=== PATIENT | male | born 1960 | race Caucasian/White ===

== ENCOUNTER 2022-03-22 21:21 | Observation (INO) ==
[2022-03-23] MEDS ORDERED: Lidocaine Jelly 11 ml Syringe TP ONE
[2022-03-23 01:04] LABS: Basophils % 0.3 %; Immature Granulocytes % 0.3 % (0-4)
[2022-03-23 01:06] LABS: Eosinophils # 0.1 K/mcL (0.0-0.6); Eosinophils % 3.1 %; Hematocrit 29.2 % (37.5-50.1); Hemoglobin 10.4 g/dL (12.9-16.9); Immature Platelets 6.4 % (1.1-6.1); Lymphocytes % 29.4 %; Mean Corpuscular HGB Conc 35.6 g/dL (31.6-35.5); Mean Corpuscular Hemoglobin 32.5 pg (28.0-33.3); Mean Corpuscular Volume 91.3 fL (83.0-100.0); Mean Platelet Volume 10.2 fL (9.4-12.4); Monocytes # 0.3 K/mcL (0.0-1.3); Monocytes % 9.3 %; Red Cell Distribution Width 12.5 % (11.5-14.5); Segmented Neutrophils % 57.6 %; White Blood Count 3.5 K/mcL (4.3-11.1)
[2022-03-23 01:21] LABS: BUN/Creatinine Ratio 8 (6-26); Blood Urea Nitrogen 6 mg/dL (8-23); Calcium 8.6 mg/dL (8.6-10.3); Carbon Dioxide 20 mEq/L (23-29); Chloride 87 mEq/L (98-107); Glucose 98 mg/dL (70-105); Osmolality,Calculated 250 (280-300); Sodium 121 mEq/L (136-145); eGFR For African Americans > 60 (> 60); eGFR For Non-African Americans > 60 (> 60)
[2022-03-23 01:32] LABS: Platelet Clumps Few (Not Present); Platelet Count 73 K/mcL (140-400); Platelet Estimate Slight Decrease (Normal)
[2022-03-23 01:43] LABS: Bacteria,Urine Moderate per hpf (None-Few); Bilirubin,Urine Negative (Negative); Blood,Urine Negative (Negative); Clarity,Urine Clear (Clear); Color,Urine Light-Yellow (Yellow); Glucose,Urine (UA) Normal (Normal); Ketones,Urine Negative (Negative); Leukocyte Esterase,Urine Large (Negative); Mucus,Urine Few per lpf (None-Few); Nitrite,Urine Negative (Negative); Protein,Urine Negative (Neg-Trace); RBC,Urine 0-3 per hpf (0-3); Specific Gravity,Urine 1.005 (1.010-1.025); Squamous Epithelial Cell,Urine Few per hpf (None-Few); Urobilinogen,Urine Normal (Normal)
[2022-03-23] MEDS ORDERED: Acetaminophen 325 MG TABLET PO PRN (03:50)
[2022-03-23] MEDS ORDERED: Naloxone 0.4 MG/ML INJ IVP PRN (03:50)
[2022-03-23] MEDS ORDERED: Ondansetron 4 MG/2 ML VIAL IVP PRN (03:50)
[2022-03-23] MEDS ORDERED: Melatonin 3 MG TABLET PO PRN (03:50)
[2022-03-23 05:46] LABS: Immature Granulocytes % 0.3 % (0-4)
[2022-03-23 05:48] LABS: Basophils % 0.7 %; Eosinophils # 0.1 K/mcL (0.0-0.6); Hematocrit 28.5 % (37.5-50.1); Immature Platelets 5.2 % (1.1-6.1); Lymphocytes # 0.9 K/mcL (0.6-4.6); Lymphocytes % 30.1 %; Mean Corpuscular HGB Conc 35.1 g/dL (31.6-35.5); Mean Corpuscular Hemoglobin 31.6 pg (28.0-33.3); Mean Corpuscular Volume 90.2 fL (83.0-100.0); Mean Platelet Volume 10.6 fL (9.4-12.4); Monocytes # 0.4 K/mcL (0.0-1.3); Monocytes % 11.6 %; Neutrophils # 1.6 K/mcL (1.6-8.9); Red Blood Count 3.16 M/mcL (4.19-5.50); Red Cell Distribution Width 12.2 % (11.5-14.5); Segmented Neutrophils % 53.3 %
[2022-03-23 05:51] LABS: Platelet Count 75 K/mcL (140-400)
[2022-03-23 06:02] LABS: Alanine Aminotransferase 15 Units/L (7-52); Albumin 3.3 g/dL (3.5-5.7); Albumin/Globulin Ratio 1.2 (1.1-2.2); Alkaline Phosphatase 125 Units/L (34-104); Aspartate Amino Transferase 17 Units/L (13-39); BUN/Creatinine Ratio 10 (6-26); Bilirubin,Total 0.8 mg/dL (0.3-1.0); Blood Urea Nitrogen 7 mg/dL (8-23); Calcium 8.6 mg/dL (8.6-10.3); Carbon Dioxide 25 mEq/L (23-29); Chloride 89 mEq/L (98-107); Globulin 2.7 g/dL (2.4-3.5); Glucose 100 mg/dL (70-105); Magnesium 1.3 mg/dL (1.6-2.6); Osmolality,Calculated 254 (280-300); Potassium 4.1 mEq/L (3.5-5.1); Sodium 123 mEq/L (136-145); eGFR For African Americans > 60 (> 60); eGFR For Non-African Americans > 60 (> 60)
[2022-03-23] MEDS: 0.9 % Sodium Chloride 1,000 ML IVC SCH ×2 (07:48→17:57)
[2022-03-23 09:37] LABS: BUN/Creatinine Ratio 10 (6-26); Blood Urea Nitrogen 7 mg/dL (8-23); Calcium 8.3 mg/dL (8.6-10.3); Carbon Dioxide 27 mEq/L (23-29); Chloride 91 mEq/L (98-107); Glucose 107 mg/dL (70-105); Osmolality,Calculated 260 (280-300); Potassium 4.2 mEq/L (3.5-5.1); Sodium 126 mEq/L (136-145); eGFR For African Americans > 60 (> 60); eGFR For Non-African Americans > 60 (> 60)
[2022-03-23] MEDS ORDERED: Linezolid 600 MG TABLET PO SCH (11:15)
[2022-03-24] MEDS: 0.9 % Sodium Chloride 1,000 ML IVC SCH ×3 (03:47→23:15)
[2022-03-24] MEDS: Aspirin Enteric Coated 81 MG Tablet PO SCH (08:49)
[2022-03-24] MEDS ORDERED: aMILoride 5 MG TABLET PO SCH (09:00)
[2022-03-24 11:37] LABS: Basophils % 0.3 %; Immature Granulocytes % 0.3 % (0-4)
[2022-03-24 11:38] LABS: Eosinophils # 0.1 K/mcL (0.0-0.6); Eosinophils % 2.4 %; Hematocrit 26.3 % (37.5-50.1); Hemoglobin 9.2 g/dL (12.9-16.9); Lymphocytes # 0.6 K/mcL (0.6-4.6); Mean Corpuscular Hemoglobin 32.2 pg (28.0-33.3); Mean Platelet Volume 10.7 fL (9.4-12.4); Monocytes % 14.9 %; Neutrophils # 1.9 K/mcL (1.6-8.9); Red Blood Count 2.86 M/mcL (4.19-5.50); Red Cell Distribution Width 12.5 % (11.5-14.5); Segmented Neutrophils % 63.1 %
[2022-03-24 11:44] LABS: Monocytes # 0.5 K/mcL (0.0-1.3); Platelet Count 55 K/mcL (140-400)
[2022-03-24 12:03] LABS: Alanine Aminotransferase 13 Units/L (7-52); Albumin 3.1 g/dL (3.5-5.7); Albumin/Globulin Ratio 1.4 (1.1-2.2); Alkaline Phosphatase 107 Units/L (34-104); Aspartate Amino Transferase 16 Units/L (13-39); BUN/Creatinine Ratio 10 (6-26); Bilirubin,Total 0.8 mg/dL (0.3-1.0); Blood Urea Nitrogen 7 mg/dL (8-23); Carbon Dioxide 25 mEq/L (23-29); Chloride 96 mEq/L (98-107); Globulin 2.2 g/dL (2.4-3.5); Glucose 109 mg/dL (70-105); Osmolality,Calculated 265 (280-300); Sodium 128 mEq/L (136-145); Total Protein 5.3 g/dL (6.4-8.9); eGFR For African Americans > 60 (> 60); eGFR For Non-African Americans > 60 (> 60)
[2022-03-25 06:19] LABS: BUN/Creatinine Ratio 8 (6-26); Blood Urea Nitrogen 5 mg/dL (8-23); Calcium 7.9 mg/dL (8.6-10.3); Carbon Dioxide 25 mEq/L (23-29); Chloride 101 mEq/L (98-107); Glucose 102 mg/dL (70-105); Osmolality,Calculated 273 (280-300); Potassium 4.2 mEq/L (3.5-5.1); Sodium 133 mEq/L (136-145); eGFR For African Americans > 60 (> 60); eGFR For Non-African Americans > 60 (> 60)
[2022-03-25 06:49] VITALS: TEMP 98.2
[2022-03-25] MEDS ORDERED: Metoprolol XL (24 HR) Succ 25 MG TAB.ER.24H PO SCH (09:45)
[2022-03-25 10:25] VITALS: BP 123/77; PULSE 89; O2SAT 95
[2022-03-25] MEDS: Aspirin Enteric Coated 81 MG Tablet PO SCH (11:09)
== END 2022-03-25 13:44 | disposition home or self-care (01) ==
LOC: 3NENU 21:21 → EMEROOARM 21:21 → 3NENU 03-23 03:39
PROVIDERS: ADMIT Family Medicine; ATTEND Family Medicine